=== PATIENT | female | born 1955 | race Caucasian/White ===

== ENCOUNTER → 2016-06-04 | Outpatient (CLI) | payer BC ==
--- NOTE | 2016-06-04 11:06 | DIAGNOSTIC IMAGING REPORT ---
Thyroid ultrasonography CLINICAL HISTORY: History of thyroid carcinoma COMPARISON STUDY: 01/01/2014 FINDINGS: The patient appears be status post a prior right thyroidectomy. 2 tiny nodules are visualized within the right thyroid bed during 5 mm and 4 mm respectively. The left lobe measures 59 x 19 x 23 mm. The gland is heterogeneous in echotexture. Within the upper pole, there is a 13 x 9 x 11 mm nodule, versus focal gland heterogeneity.. There is additional 6 x 4 x 7 mm upper pole nodule. There is a 9 x 9 x 9 mm hyperechoic lower pole nodule. IMPRESSION: 1. Status post right thyroidectomy with 2 tiny nodules in the region of the thyroid bed. 2. Heterogeneous left lobe of thyroid, similar in appearance to the prior December 2013 study. Electronically signed by: Edison Robbins M.D. 06/04/2016 11:05 AM Dictated Date/Time: 06/04/2016 11:01 AM
== END | disposition home or self-care (01) ==
LOC: C.ULTR 09:59
PROVIDERS: ATTEND Family Medicine
DX: Z85.850 Personal history of malignant neoplasm of thyroid (principal)

== ENCOUNTER → 2016-06-04 | Outpatient (CLI) | payer BC ==
--- NOTE | 2016-06-05 12:17 | MAMMOGRAPHY REPORT ---
BILATERAL DIGITAL SCREENING MAMMOGRAM TOMOSYNTHESIS WITH CAD: 06/04/2016 CLINICAL HISTORY: Routine screening. Patient has no complaints. TECHNIQUE: Breast tomosynthesis in addition to standard 2D mammography was performed. Current study was also evaluated with a Computer Aided Detection (CAD) system. COMPARISON: Comparison is made to exams dated: 02/08/2014 mammogram, 01/27/2013 mammogram, 2 mammogram, 12/04/2010 mammogram - [facility], 11/16/2008, and 04/22/2006. BREAST COMPOSITION: The tissue of both breasts is heterogeneously dense, which may obscure small ma sses. FINDINGS: The parenchymal pattern is similar to prior mammograms. No new suspicious mass, microsoft architect ural distortion or cluster of microcalcifications is seen. IMPRESSION: ACR BI-RADS CATEGORY 1: NEGATIVE There is no mammographic evidence of malignancy. A 1 year screening mammogram is recommended. The p atient will receive written notification of the results. Approximately 10% of breast cancers are not detected with mammography. A negative mammographic repor t should not delay biopsy if a clinically suggestive mass is present. Benita Tapia M.D. ay/:06/04/2016 22:27:33 Dag Sprayer: Patti MITCHELL(Luisa)(Mauricio), [facility] letter sent: Normal 1/2 BI-RADS Code: ACR BI-RADS Category 1: Negative
== END | disposition home or self-care (01) ==
LOC: C.MAMM 10:55
PROVIDERS: ATTEND Family Medicine
DX: Z12.31 Encounter for screening mammogram for malignant neoplasm of breast (principal)

== ENCOUNTER → 2017-06-25 | Outpatient (CLI) | payer OTHER ==
--- NOTE | 2017-06-26 15:30 | MAMMOGRAPHY REPORT ---
BILATERAL DIGITAL SCREENING MAMMOGRAM TOMOSYNTHESIS WITH CAD: 06/25/2017 CLINICAL HISTORY: Routine screening. TECHNIQUE: Breast tomosynthesis in addition to standard 2D mammography was performed. Current study was also evaluated with a Computer Aided Detection (CAD) system. COMPARISON: Comparison is made to exams dated: 06/04/2016 mammogram, 02/08/2014 mammogram, 01/27/2013 m ammogram, 01/18/2012 mammogram, 12/04/2010 mammogram - [facility], and 11/16/2008. BREAST COMPOSITION: The tissue of both breasts is heterogeneously dense, which may obscure small mas ses. FINDINGS: The parenchymal pattern is unchanged. No developing mass, architectural distortion or clus ter of suspicious microcalcifications is seen in either breast. IMPRESSION: ACR BI-RADS CATEGORY 2: BENIGN There is no mammographic evidence of malignancy. A 1 year screening mammogram is recommended. The pa tient will receive written notification of the results. Approximately 10% of breast cancers are not detected with mammography. A negative mammographic report should not delay biopsy if a clinically suggestive mass is present. Benita Tapia M.D. ay/:06/25/2017 15:29:29 Software Security Architect: Jey MITCHELL(Luisa)(M), [facility] letter sent: Normal 1/2 BI-RADS Code: ACR BI-RADS Category 2: Benign
== END | disposition home or self-care (01) ==
LOC: C.MAMM 12:47
PROVIDERS: ATTEND Family Medicine
DX: Z12.31 Encounter for screening mammogram for malignant neoplasm of breast (principal)